=== PATIENT | female | born 1940 | race Caucasian/White ===

== ENCOUNTER 2016-05-12 14:44 | Outpatient (CLI) | payer MEDICARE, OTHER | END 2016-05-12 14:45 | LOC: HPCALD 14:44 | PROVIDERS: ATTEND Family Medicine | DX: N39.0 Urinary tract infection, site not specified (principal) | CPT/HCPCS: 87086 ==

== ENCOUNTER 2016-06-12 15:26 | Outpatient (CLI) | payer MEDICARE, OTHER | END 2016-06-12 15:27 | disposition home or self-care (01) | LOC: HPCALD 15:26 | PROVIDERS: ATTEND Family Medicine | DX: N39.0 Urinary tract infection, site not specified (principal) | CPT/HCPCS: 87077; 87086 ==

== ENCOUNTER 2016-08-21 17:14 | Outpatient (CLI) | payer MEDICARE, OTHER | END 2016-08-21 17:15 | disposition home or self-care (01) | LOC: HPCALD 17:14 | PROVIDERS: ATTEND Family Medicine | DX: R39.9 Unspecified symptoms and signs involving the genitourinary system (principal) | CPT/HCPCS: 87077; 87086 ==

== ENCOUNTER 2018-03-11 16:05 | Outpatient (CLI) | payer MEDICARE, OTHER ==
--- NOTE | 2018-03-12 07:26 | RAD ---
RADIOGRAPH CHEST 2 VIEWS: HISTORY: 77-year-old female with cough. FINDINGS: There is no air space density, pulmonary edema, pleural effusion, pneumothorax, or cardiomegaly. IMPRESSION: 1. No acute cardiopulmonary findings. 2. S-shaped thoracolumbar scoliosis. miguel [] POS: DEBBIE
== END 2018-03-11 16:06 | disposition home or self-care (01) ==
LOC: BURRAD 16:05
PROVIDERS: ATTEND Family Medicine
DX: R05 Cough (principal); M41.9 Scoliosis, unspecified
CPT/HCPCS: 71046

== ENCOUNTER 2018-09-26 12:35 | Outpatient (CLI) | payer MEDICARE, OTHER ==
--- NOTE | 2018-09-26 18:14 | CT ---
CT ABDOMEN AND PELVIS WITHOUT CONTRAST: 09/26/18 Axial slices were acquired and coronal reconstructions were later done for evaluation of left flank p ain. The lung bases are clear. The liver, spleen, pancreas, adrenal glands, and kidneys were unremarkable within the limitations of a noncontrast study. No renal or ureteral calculi were seen. There is an e xtrarenal pelvis involving the right kidney. The abdominal aorta is quite calcified but shows no aneu rysm. 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 The small bowel is fluid filled with some loops reaching about 2.5 cm in width. There is no sign of b owel wall thickening or vonnie-intestinal inflammatory change. Regarding the left flank, there were no inflammatory changes around the left kidney, left colon, or sigmoid colon. CT of the pelvis was mainly remarkable for some of the loops of fluid filled small bowel, but no pelv ic masses, free fluid, or inflammatory changes were seen. The thickness of the terminal portions of t he sigmoid colon and proximal rectum may be slightly increased but this finding is marginal at best. The uterus was noted to be present. The pelvic calcifications seen were felt to be in vessels and not ureters. IMPRESSION: 1. No reason for the patient's left flank pain was found per se. 2. Fluid filled loops of small bowel that are minimally distended at most. The amount of nodes i n the small bowel mesentery was perhaps a little more than usual, but not enough to be alarming. This finding may or may not be of significance. POS: HOME
== END 2018-09-26 12:36 | disposition home or self-care (01) ==
LOC: BURCT 12:35
PROVIDERS: ATTEND Family Medicine
DX: R10.9 Unspecified abdominal pain (principal); K63.89 Other specified diseases of intestine
CPT/HCPCS: 74176

== ENCOUNTER 2019-04-01 13:25 | Outpatient (CLI) | payer MEDICARE, OTHER ==
--- NOTE | 2019-04-02 07:14 | ULT ---
BILATERAL RENAL ULTRASOUND: Date: 04/01/19 Ultrasonography of the urinary tract was done for evaluation of dysuria and multiple UTIs. The right kidney measures 11.7 x 5.0 x 6.0 cm. No mass or hydronephrosis seen. There are some areas i n the cortex that suggest the possibility of scarring. The cortex was normal in thickness and echogen icity, however. The left kidney measured 12.0 x 3.9 x 4.3 cm. No mass or hydronephrosis seen. The abd ominal aorta was said to have plaque in it, but images were not provided for evaluation. The urinary bladder contained no internal defects. Right and left ureteral jets were seen. Voiding wa s incomplete, with a pre-void amount estimated at 321 mL and post-void 69 mL. IMPRESSION: 1. No acute urinary tract obstruction. 2. Possible scarring in the right kidney, potentially from prior infections. 3. Incomplete voiding. POS: HOME
== END 2019-04-01 13:26 | disposition home or self-care (01) ==
LOC: BURULT 13:25
DX: R30.0 Dysuria (principal); R39.14 Feeling of incomplete bladder emptying
CPT/HCPCS: 76770